=== PATIENT | female | born 1965 | race Caucasian/White ===

== ENCOUNTER → 2017-08-16 11:47 | Outpatient (CLI) | payer MEDICARE ==
[2017-08-20 21:08] LABS: BK QN PCR LOG10 3.079 (())
== END | disposition home or self-care (01) ==
LOC: D.LAB 11:47
PROVIDERS: Transplant Surgery
DX: Z94.0 Kidney transplant status (principal)

== ENCOUNTER → 2017-11-14 09:33 | Outpatient (CLI) | payer MEDICARE, MEDICAID ==
[2017-11-14 10:26] LABS: BASOPHILS 0.7 % (0-2); EOSINOPHILS 9.2 % (0-7); HEMATOCRIT 49.1 % (36.0-48.0); HEMOGLOBIN 16.8 g/dL (12-16); IMMATURE GRANULOCYTES 0.2 % (0-5); LYMPHOCYTES 26.5 % (15-50); MCH 32.2 pg (26.0-34.0); MCHC 34.2 g/dL (31.0-37.0); MCV 94.1 fL (80.0-100.0); MEAN PLATELET VOLUME 10.5 fL (7.4-10.4); MONOCYTES 9.3 % (2-11); NEUTROPHILS 54.1 % (40-80); PLATELET COUNT 225 10x3/uL (130-400); RBC 5.22 10x6/uL (4.00-5.40); RDW 13.1 % (11.5-14.5); WBC 8.6 10x3/uL (4.8-10.8)
[2017-11-14 10:30] LABS: ALBUMIN 3.9 g/dL (3.4-5.0); ANION GAP 12.5 mmol/L (8-16); BILIRUBIN - TOTAL 0.52 mg/dL (0.2-1.3); CALCIUM 10.7 mg/dL (8.5-10.1); CARBON DIOXIDE 31.7 mmol/L (21.0-32.0); CREATININE - SERUM 1.3 mg/dL (0.6-1.3); POTASSIUM - SERUM 4.2 mmol/L (3.5-5.1); PROTEIN - SERUM 6.9 g/dL (6.4-8.2)
[2017-11-14 11:05] LABS: APPEARANCE CLEAR (CLEAR); COLOR YELLOW (YELLOW); SPECIFIC GRAVITY 1.015 (1.005-1.020)
[2017-11-14 11:06] LABS: BILIRUBIN NEGATIVE (NEGATIVE); GLUCOSE NEGATIVE (NEGATIVE); KETONE NEGATIVE (NEGATIVE); NITRITE NEGATIVE (NEGATIVE); PROTEIN NEGATIVE (NEGATIVE); UROBILINOGEN NORMAL (NORMAL)
[2017-11-16 14:17] LABS: BK QN PCR LOG10 (URINE) 4.929 (()); BK QUANTITATION PCR Positive < 200 (Negative); BK QUANTITATION PCR (URINE) 85000 (Negative)
== END | disposition home or self-care (01) ==
LOC: D.LAB 09:33
PROVIDERS: Internal Medicine Nephrology
DX: Z94.0 Kidney transplant status (principal); Z51.81 Encounter for therapeutic drug level monitoring; Z79.52 Long term (current) use of systemic steroids

== ENCOUNTER → 2018-03-26 10:26 | Outpatient (CLI) | payer MEDICARE, MEDICAID ==
[2018-03-26 10:56] LABS: APPEARANCE CLEAR (CLEAR); BASOPHILS 0.5 % (0-2); BILIRUBIN NEGATIVE (NEGATIVE); COLOR YELLOW (YELLOW); EOSINOPHILS 9.7 % (0-7); GLUCOSE NEGATIVE (NEGATIVE); HEMOGLOBIN 16.3 g/dL (12-16); IMMATURE GRANULOCYTES 0.2 % (0-5); KETONE NEGATIVE (NEGATIVE); LYMPHOCYTES 29.4 % (15-50); MCH 32.7 pg (26.0-34.0); MCV 96.2 fL (80.0-100.0); MEAN PLATELET VOLUME 10.3 fL (7.4-10.4); MONOCYTES 7.2 % (2-11); NITRITE NEGATIVE (NEGATIVE); PLATELET COUNT 192 10x3/uL (130-400); PROTEIN NEGATIVE (NEGATIVE); RBC 4.99 10x6/uL (4.00-5.40); RDW 12.6 % (11.5-14.5); UROBILINOGEN NORMAL (NORMAL); WBC 9.3 10x3/uL (4.8-10.8)
[2018-03-26 11:17] LABS: ALBUMIN 3.7 g/dL (3.4-5.0); ANION GAP 11.5 mmol/L (8-16); BILIRUBIN - TOTAL 0.6 mg/dL (0.2-1.3); CALCIUM 9.6 mg/dL (8.5-10.1); CARBON DIOXIDE 25.6 mmol/L (21.0-32.0); CREATININE - SERUM 1.4 mg/dL (0.6-1.3); POTASSIUM - SERUM 4.1 mmol/L (3.5-5.1); PROTEIN - SERUM 7.2 g/dL (6.4-8.2)
[2018-03-28 14:24] LABS: BK QN PCR LOG10 (URINE) 4.279 (()); BK QUANTITATION PCR Positive < 200 (Negative); BK QUANTITATION PCR (URINE) 19000 (Negative)
== END | disposition home or self-care (01) ==
LOC: D.LAB 10:26
PROVIDERS: Internal Medicine Nephrology
DX: Z51.81 Encounter for therapeutic drug level monitoring (principal); Z79.52 Long term (current) use of systemic steroids; Z48.298 Encounter for aftercare following other organ transplant

== ENCOUNTER → 2018-06-26 09:03 | Outpatient (CLI) | payer MEDICARE, MEDICAID ==
[~2018-06-26 09:03] MED LIST: CALCIUM 500 +1 EAC3 PO; ESTRACE 0.5 MG0.5 MG PO; KEFLEX500 MG PO; LEVOTHYROXINE50 MCG PO; NORCO 7.5/325 T1 TA1 PO; OMEGA-3100 MG PO; PREDNISONE5 MG PO; TACROLIMUS ANHYD1 MG PO
[2018-06-26 09:48] LABS: APPEARANCE CLEAR (CLEAR); BILIRUBIN NEGATIVE (NEGATIVE); COLOR YELLOW (YELLOW); GLUCOSE NEGATIVE (NEGATIVE); KETONE NEGATIVE (NEGATIVE); NITRITE NEGATIVE (NEGATIVE); PROTEIN NEGATIVE (NEGATIVE); UROBILINOGEN NORMAL (NORMAL)
[2018-06-26 09:53] LABS: BASOPHILS 0.4 % (0-2); EOSINOPHILS 7.7 % (0-7); HEMATOCRIT 48.5 % (36.0-48.0); HEMOGLOBIN 16.3 g/dL (12-16); IMMATURE GRANULOCYTES 0.2 % (0-5); MCH 32.9 pg (26.0-34.0); MCHC 33.6 g/dL (31.0-37.0); MEAN PLATELET VOLUME 11.3 fL (7.4-10.4); MONOCYTES 7.8 % (2-11); NEUTROPHILS 56.9 % (40-80); PLATELET COUNT 210 10x3/uL (130-400); RBC 4.95 10x6/uL (4.00-5.40); RDW 13.1 % (11.5-14.5); WBC 10.3 10x3/uL (4.8-10.8)
[2018-06-26 10:11] LABS: ALBUMIN 3.6 g/dL (3.4-5.0); ANION GAP 11.3 mmol/L (8-16); BILIRUBIN - TOTAL 0.49 mg/dL (0.2-1.3); CARBON DIOXIDE 29.9 mmol/L (21.0-32.0); CREATININE - SERUM 1.1 mg/dL (0.6-1.3); POTASSIUM - SERUM 4.2 mmol/L (3.5-5.1); PROTEIN - SERUM 7.1 g/dL (6.4-8.2)
[2018-07-23 06:22] VITALS: BMI 23.6
== END | disposition home or self-care (01) ==
LOC: D.LAB 09:03
PROVIDERS: Internal Medicine Nephrology
DX: Z94.0 Kidney transplant status (principal); Z51.81 Encounter for therapeutic drug level monitoring; Z79.52 Long term (current) use of systemic steroids

== ENCOUNTER → 2018-07-03 11:21 | Outpatient (CLI) | payer MEDICARE, MEDICAID ==
[2018-07-05 13:18] LABS: BK QUANTITATION PCR Positive < 200 (Negative)
[2018-07-05 19:11] LABS: TACROLIMUS - LABCORP 3.3 ng/mL (2.0-20.0)
[2018-07-23 06:22] VITALS: BMI 23.6
== END | disposition home or self-care (01) ==
LOC: D.LAB 11:21
PROVIDERS: Internal Medicine Nephrology
DX: Z94.0 Kidney transplant status (principal)

== ENCOUNTER 2018-07-23 05:29 | Day surgery (SDC) | payer MEDICARE ==
[~2018-07-23] VITALS: Ht 157.5 cm; Wt 58.5 kg
--- NOTE | ~2018-07-23 | OP ---
PATIENT NAME: SHAHEEN MCKINLEY MEDICAL RECORD: [id number] :67 LOCATION:[facility] ADMISSION DATE: SURGEON: SLAVA ALONZO DO DATE OF OPERATION: 07/23/2018 PROCEDURE PERFORMED: Right fifth metatarsal open reduction internal fixation. PREOPERATIVE DIAGNOSIS: Right fifth metatarsal fracture. POSTOPERATIVE DIAGNOSIS: Right fifth metatarsal fracture. INDICATIONS: Ms. Mckinley is a 53-year-old female who had a right fifth metatarsal fracture approximately a month ago. I have been watching with x-ray and had not been healing. She was tired dealing with the pain and wanted something done to fix it, so we said we would do an intramedullary screw and informed of the risks and benefits of the procedure including infection, bleeding, damage to nerves and vessels and tendons in the foot. She is aware of these risks, and wanted to proceed forward as well as need for further surgery and risk of nonunion due to the location of the fracture, it is in the watershed area in the fifth metatarsal. She is aware of that and wanted to proceed. SURGEON: Slava Alonzo DO DESCRIPTION OF PROCEDURE: The patient was given a block preoperatively, given a gram of Ancef preoperatively, taken to the operative suite, laid in supine position. A timeout was performed. Everyone was in agreement with the correct side, site, patient and procedure. The right lower extremity was prepped and draped in sterile fashion. The incision was made just proximal to the base of the fifth metatarsal and then a guidewire was placed into the fifth metatarsal intramedullary canal. This was confirmed on AP and lateral x-ray, measured using a 50-mm screw. The overdrill was then used using a soft tissue guide and for protection the overdrill was used. A 50-mm screw was inserted into the foot, had nice compression at the fracture site and this was hand-tightened. This was withdrawn, guidewire was withdrawn and x-rays were confirmed in the intramedullary canal of the fifth metatarsal and then both site was irrigated and closed with 3-0 Vicryl under the skin and 4-0 Monocryl in horizontal mattress fashion on the skin. Adaptic, 4 x 4's, Kerlix, and ROLANDA were then placed on the foot and placed in a postop shoe. The patient was awakened and taken to recovery in stable condition. Blood loss was minimal. COMPLICATIONS: None. TRANSINT:[id number] Voice Confirmation ID: [id number] DOCUMENT ID: [id number] SLAVA ALONZO DO at 1042 CC: [id number] DICTATION DATE: 07/23/18830 BOTTLING SUPERVISOR: 07/23/18903 [facility] [place] 07/23/[address] [address]
[~2018-07-23 05:29] MED LIST changes: -KEFLEX500 MG PO; -NORCO 7.5/325 T1 TA1 PO
[2018-07-23 05:45] LABS: HEMATOCRIT 48.2 % (36.0-48.0); HEMOGLOBIN 16.6 g/dL (12-16); MCHC 34.4 g/dL (31.0-37.0); MCV 95.8 fL (80.0-100.0); RBC 5.03 10x6/uL (4.00-5.40); RDW 12.4 % (11.5-14.5); WBC 9.3 10x3/uL (4.8-10.8)
[2018-07-23 05:56] LABS: ANION GAP 14.2 mmol/L (8-16); CALCIUM 9.5 mg/dL (8.5-10.1); CARBON DIOXIDE 28.6 mmol/L (21.0-32.0); CREATININE - SERUM 1.3 mg/dL (0.6-1.3); POTASSIUM - SERUM 3.8 mmol/L (3.5-5.1)
[2018-07-23 06:22] VITALS: BP 118/79; Ht 157.5 cm; Wt 58.5 kg
[2018-07-23] MEDS ORDERED: NORCO 7.5/325 T1 TA1 PO (08:22)
[2018-07-23] MEDS ORDERED: KEFLEX500 MG PO (08:23)
== END 2018-07-23 10:00 | disposition home or self-care (01) ==
LOC: D.OPS 05:29 → D.PAN 07:30 → D.OPS 07:30
PROVIDERS: Anesthesiology
DX: S92.351A Displaced fracture of fifth metatarsal bone, right foot, initial encounter for closed fracture (principal); Z01.812 Encounter for preprocedural laboratory examination; X58.XXXA Exposure to other specified factors, initial encounter

== ENCOUNTER → 2018-11-25 10:05 | Outpatient (CLI) | payer MEDICARE ==
[2018-07-23 06:22] VITALS: BMI 23.6
[~2018-11-25 10:05] MED LIST changes: +KEFLEX500 MG PO; +NORCO 7.5/325 T1 TA1 PO
[2018-11-25 10:38] LABS: BASOPHILS 1.5 % (0-2); EOSINOPHILS 12.1 % (0-7); HEMATOCRIT 47.3 % (36.0-48.0); MCH 32.8 pg (26.0-34.0); MCHC 33.8 g/dL (31.0-37.0); MCV 96.9 fL (80.0-100.0); MEAN PLATELET VOLUME 10.5 fL (7.4-10.4); MONOCYTES 7.1 % (2-11); NEUTROPHILS 44.3 % (40-80); PLATELET COUNT 209 10x3/uL (130-400); RBC 4.88 10x6/uL (4.00-5.40); RDW 12.4 % (11.5-14.5); WBC 7.8 10x3/uL (4.8-10.8)
[2018-11-25 10:54] LABS: ALBUMIN 3.9 g/dL (3.4-5.0); ANION GAP 12.1 mmol/L (8-16); BILIRUBIN - TOTAL 0.56 mg/dL (0.2-1.3); CALCIUM 9.8 mg/dL (8.5-10.1); CARBON DIOXIDE 28.4 mmol/L (21.0-32.0); CREATININE - SERUM 1.3 mg/dL (0.6-1.3); MAGNESIUM - SERUM 1.9 mg/dL (1.8-2.4); PHOSPHOROUS 3.9 mg/dL (2.5-4.9); POTASSIUM - SERUM 4.5 mmol/L (3.5-5.1); PROTEIN - SERUM 7.4 g/dL (6.4-8.2)
[2018-11-25 11:30] LABS: APPEARANCE CLEAR (CLEAR); BACTERIA FEW /hpf (NONE SEEN); BILIRUBIN NEGATIVE (NEGATIVE); COLOR YELLOW (YELLOW); EPITHELIAL CELLS RARE /hpf (0-5); GLUCOSE NEGATIVE (NEGATIVE); KETONE NEGATIVE (NEGATIVE); NITRITE NEGATIVE (NEGATIVE); PROTEIN NEGATIVE (NEGATIVE); RED CELLS - URINE RARE /hpf (0-5); SPECIFIC GRAVITY 1.005 (1.005-1.020); UROBILINOGEN NORMAL (NORMAL); WHITE CELLS - URINE RARE /hpf (0-5)
[2018-11-27 11:20] LABS: BK QUANTITATION PCR Positive < 200 (Negative)
[2018-11-28 08:25] LABS: TACROLIMUS - LABCORP 1.8 ng/mL (2.0-20.0)
== END | disposition home or self-care (01) ==
LOC: D.LAB 10:05
PROVIDERS: Internal Medicine Nephrology
DX: Z94.0 Kidney transplant status (principal)

== ENCOUNTER 2019-01-20 11:04 | Inpatient (IN) | payer MEDICARE ==
[~2019-01-20] VITALS: Ht 157.5 cm; Wt 59.1 kg
[2019-01-20 11:41] LABS: BASOPHILS 0.3 % (0-2); EOSINOPHILS 3.8 % (0-7); HEMATOCRIT 45.6 % (36.0-48.0); HEMOGLOBIN 15.1 g/dL (12-16); IMMATURE GRANULOCYTES 0.2 % (0-5); LYMPHOCYTES 14.7 % (15-50); MCH 31.8 pg (26.0-34.0); MCHC 33.1 g/dL (31.0-37.0); MEAN PLATELET VOLUME 10.5 fL (7.4-10.4); MONOCYTES 5.9 % (2-11); NEUTROPHILS 75.1 % (40-80); PLATELET COUNT 223 10x3/uL (130-400); RBC 4.75 10x6/uL (4.00-5.40); RDW 12.5 % (11.5-14.5); WBC 12.1 10x3/uL (4.8-10.8)
[2019-01-20 12:02] LABS: ALBUMIN 3.5 g/dL (3.4-5.0); BILIRUBIN - TOTAL 0.46 mg/dL (0.2-1.3); CALCIUM 9.5 mg/dL (8.5-10.1); CARBON DIOXIDE 26.4 mmol/L (21.0-32.0); CREATININE - SERUM 1.4 mg/dL (0.6-1.3); POTASSIUM - SERUM 4.4 mmol/L (3.5-5.1); PROTEIN - SERUM 6.8 g/dL (6.4-8.2)
[2019-01-20 12:04] LABS: AMYLASE - SERUM 103 U/L (25-115); LIPASE 325 U/L (73-393)
[2019-01-20 12:29] LABS: APPEARANCE CLOUDY (CLEAR); BACTERIA MODERATE /hpf (NONE SEEN); BILIRUBIN NEGATIVE (NEGATIVE); COLOR YELLOW (YELLOW); EPITHELIAL CELLS RARE /hpf (0-5); GLUCOSE NEGATIVE (NEGATIVE); KETONE NEGATIVE (NEGATIVE); MUCUS <1+ /lpf (NONE SEEN); NITRITE NEGATIVE (NEGATIVE); PROTEIN 2+ mg/dL (NEGATIVE); UROBILINOGEN NORMAL (NORMAL); WHITE CELLS - URINE 25-50 /hpf (0-5)
[2019-01-20 12:48] VITALS: BP 157/87
--- NOTE | 2019-01-20 15:28 | MORECARE ---
CASE MANAGEMENT DISCHARGE SUMMARY PATIENT: SHAHEEN NEVAREZ UNIT: [id number] ADM DATE: 01/20/19 AGE: 53 : 67 SEX: F ROOM/BED: D.E17 AUTHOR: TIM OGLESBY PHYSICIAN: REFERRING PHYSICIAN: MARIEL ALFARO MD DATE OF SERVICE: 01/20/19 Discharge Plan Patient Name: SHAHEEN NEVAREZ [facility] [facility] 1965 Planned Disposition: Anticipated Discharge Date: Discharge Date: Expected LOS: Initial Reviewer: [email or web address] Initial Review Date: 01/20/2019 Generated: 01/20/19 4:28 pm Patient Name: SHAHEEN NEVAREZ Page 20740 at 1528 All edits/amendments must be made on the electronic document DICTATION DATE: 01/20/19 1528 RESOURCE RECOVERY SPECIALIST: JERILYN 01/20/19 1528 RPT#: [id number] DC DATE: STATUS: ADM IN [facility] [address] [place] [address] END OF REPORT
[2019-01-20 16:31] VITALS: BP 131/82
--- NOTE | 2019-01-20 17:58 | NUR ---
NS INFUSION INITIATED AT 1302 COMPLETE AT 1402. ZOSYN INFUSION COMPLETE AT 1657.
[2019-01-20] MEDS ORDERED: OS-CAL500 MG PO (19:40)
[2019-01-20] MEDS ORDERED: MELATONIN 3 MG1 TAB PO (19:45)
--- NOTE | 2019-01-20 19:45 | NUR ---
ASSESSMENT COMPLETE, PT A&O. RESPERATIONS EVEN ON RA. VITALS STABLE. IV TO LEFT ARM SL, SITE CLEAN AND DRY. HISTORY AND MED REC OBTAINED. PT DENIES PAIN OR NEEDS, BED LOW, CL IN REACH.
[2019-01-20 20:05] VITALS: BP 116/73
[2019-01-21 03:47] VITALS: BP 107/66
[2019-01-21 05:50] LABS: BASOPHILS 0.6 % (0-2); EOSINOPHILS 9.7 % (0-7); HEMATOCRIT 42.3 % (36.0-48.0); HEMOGLOBIN 13.8 g/dL (12-16); IMMATURE GRANULOCYTES 0.1 % (0-5); LYMPHOCYTES 32.5 % (15-50); MCH 31.5 pg (26.0-34.0); MCHC 32.6 g/dL (31.0-37.0); MCV 96.6 fL (80.0-100.0); MEAN PLATELET VOLUME 10.6 fL (7.4-10.4); MONOCYTES 8.3 % (2-11); NEUTROPHILS 48.8 % (40-80); PLATELET COUNT 205 10x3/uL (130-400); RBC 4.38 10x6/uL (4.00-5.40); RDW 12.7 % (11.5-14.5)
[2019-01-21 06:13] LABS: WBC 7.1 10x3/uL (4.8-10.8)
[2019-01-21 06:21] LABS: ANION GAP 11.9 mmol/L (8-16); CALCIUM 8.4 mg/dL (8.5-10.1); CARBON DIOXIDE 26.2 mmol/L (21.0-32.0); CREATININE - SERUM 1.3 mg/dL (0.6-1.3); POTASSIUM - SERUM 4.1 mmol/L (3.5-5.1)
--- NOTE | 2019-01-21 07:45 | NUR ---
PT SITTING UP IN BED. LEFT FA NS AT 75. ROOM AIR. ALERT AND ORIENTED. PT STATES SHE HAS A HEADACHE AND WOULD LIKE SOME TYLENOL. I STATED TO PT I WILL BRING IT WITH HER AM MEDS. PT VERBALIZED UNDERSTANDING. PT HAS NO FURTHER NEEDS AT THIS TIME. BED LOW. CL IN REACH.
[2019-01-21 08:26] VITALS: BP 102/73
--- NOTE | 2019-01-21 09:03 | NUR ---
PT REFUSED HEPARIN. PT STATES SHE DOES NOT NEED THAT MEDICATION FOR BLOOD CLOTS BECAUSE SHE DOES NOT HAVE A HX OF BLOOD CLOTS AND SHE HAS BEEN AMBULATING AROUND ROOM.
--- NOTE | 2019-01-21 11:00 | NUR ---
I have reviewed this patient and I concur with the Shift Assessment completed by the Licensed Practical Nurse today this shift.
--- NOTE | 2019-01-21 11:13 | NUR ---
SCD'S PLACED ON PT.
[2019-01-21 11:44] VITALS: BP 108/77
[2019-01-21 14:17] VITALS: Ht 157.5 cm; Wt 59.1 kg
[2019-01-21 15:34] VITALS: BP 108/72
--- NOTE | 2019-01-21 19:21 | NUR ---
ASSESSMENT COMPLETE, PT A&O, RESPERATIONS EVEN ON RA. IV TO LEFT FOREARM SL, SITE CLEAN AND DRY. PT CURRENTLY DENIES PAIN OR NEEDS AND STATES THAT SHE IF FEELING BETTER THAN SHE DID YESTERDAY.
[2019-01-21 20:00] VITALS: BP 118/78
--- NOTE | 2019-01-22 02:17 | NUR ---
PT ASLEEP, PT IS AAO. UP AD PORTIA. AROUSES TO NURSE IN ROOM. PT HAS NO S/S OF DISTRESS. BEDLOW CALL LIGHT IN REACH. PT WILL CALL FOR ASSIST WHEN NEEDED. WILL CPOC
[2019-01-22 03:55] VITALS: BP 142/55
--- NOTE | 2019-01-22 04:57 | NUR ---
IV TO LEFT FOREARM FLUSHED WITH OUT DIFFICULTY, HOW EVER VEIN IS RED AND IRRITATED. PT STATED THAT IT BRYSON TOO BAD TO INFUSE IV VANC. IV CATH REMOVED, TIP IN TACT, INSERTION SITE COVERED WITH 2X2 AND TAPE. IV RESITED TO LEFT WRIST, 20 GUAGE, FIRST ATTEMPT, PT TOLERATED WELL. IV VANC RESTARTED.
--- NOTE | 2019-01-22 07:40 | NUR ---
ASSESSMENT DONE. DENIES NEEDS.
[2019-01-22 10:23] VITALS: BP 128/83
--- NOTE | 2019-01-22 11:04 | NUR ---
I have reviewed this patient and I concur with the Shift Assessment completed by the Licensed Practical Nurse today this shift.
[2019-01-22 14:36] VITALS: BP 126/81
[2019-01-22 16:59] VITALS: BP 129/86
--- NOTE | 2019-01-22 17:47 | NUR ---
WITHOUT CHANGES OR DIATRESS NOTED AT THIS TIME.
[2019-01-22 20:32] VITALS: BP 122/79
[2019-01-23 00:04] VITALS: BP 126/84
[2019-01-23 06:04] VITALS: BP 133/91
[2019-01-23 08:59] VITALS: BP 139/90
[2019-01-23] MEDS ORDERED: MACRODANTIN50 MG PO (09:40)
[2019-01-23] MEDS ORDERED: PROTONIX40 MG PO (09:41)
--- NOTE | 2019-01-23 10:35 | NUR ---
IV DCD WITH TIP INTACT. INSTRUCTIONS GIVEN TO PT. TO PRIVATE CAR PER WHEEL CHAIR
--- NOTE | 2019-01-24 07:21 | DS ---
PATIENT:SHAHEEN MCKINLEY :67 MEDICAL RECORD: [id number] DISCHARGE SUMMARY ADMISSION DATE: 01/20/19 DISCHARGE DATE: 01/23/19 Ms. Mckinley is a 53-year-old white female with history of end-stage renal disease status post renal transplant. She has been stable without hospitalization. She does have recurrent urinary tract infections and chronic recurrent abdominal pain, admitted by Dr. Smith for worsening abdominal pain and presumed urinary tract infection. HOSPITAL COURSE: The patient had a CT of her abdomen that was essentially negative. She was placed on antibiotic therapy pending results of her urine culture, which were negative. She went from IV to oral antibiotics and tolerated this well without difficulty. At the time of discharge, she was essentially back to baseline and I will have her follow up with urology as an outpatient. DISCHARGE DIAGNOSES: 1. Recurrent abdominal pain, etiology unclear. 2. Recurrent urinary tract infections. 3. Status post renal transplant. PLAN: The patient will be discharged today. She will resume her home medications. I placed her on Macrobid 50 mg h.s. She will follow up with Dr. De Santiago in urology. I will see her back in the office in 4-6 weeks. She will resume all of her transplant drugs. TRANSINT:[id number] Voice Confirmation ID: [id number] DOCUMENT ID: [id number] MARIEL ALFARO MD at 0721 CC: [id number] DICTATION DATE: 01/23/19817 PROFESSIONAL ENGINEER: 01/23/19 0839 DIS IN 01/23/19 [id number] [place] [address]
--- NOTE | 2019-01-24 08:04 | MORECARE ---
CASE MANAGEMENT DISCHARGE SUMMARY PATIENT: SHAHEEN NEVAREZ UNIT: [id number] ADM DATE: 01/20/19 AGE: 53 : 67 SEX: F ROOM/BED: D.2127 AUTHOR: TIM OGLESBY PHYSICIAN: REFERRING PHYSICIAN: MARIEL ALFARO MD DATE OF SERVICE: 01/24/19 Discharge Plan Patient Name: SHAHEEN NEVAREZ [facility] [facility] 1965 Planned Disposition: Home Anticipated Discharge Date: 01/23/19 Discharge Date: 01/23/2019 Expected LOS: 3 Initial Reviewer: [email or web address] Initial Review Date: 01/20/2019 Generated: 01/24/19 9:04 am Coverage Notice Reviewer: [email or web address] Raciel Madrigal Notice Issued Date-Time: 01/23/2019 11:00 Notice Type: IM Discharge Notice Notice Delivered To: Patient Relationship to Patient: Machines Technician Name: Delivery Method: HAND - Hand Delivered Alessandra Days: Prior Verbal Notification: Recipient Understood Notice: Yes Recipient Signature: Yes Med Rec Note Co-signed by Attending: Coverage Notice Comment: Last DP export: 01/20/19 2:28 p Patient Name: SHAHEEN NEVAREZ Page 03830 at 0804 All edits/amendments must be made on the electronic document DICTATION DATE: 01/24/19802 CONTAINER REPAIRER: DM 01/24/19802 RPT#: [id number] DC DATE:01/23/19 STATUS: DIS IN [facility] [address] [place] [address] END OF REPORT
--- NOTE | 2019-01-24 08:11 | MORECARE ---
CASE MANAGEMENT DISCHARGE SUMMARY PATIENT: SHAHEEN NEVAREZ UNIT: [id number] ADM DATE: 01/20/19 AGE: 53 : 67 SEX: F ROOM/BED: D.6976 AUTHOR: TIM OGLESBY PHYSICIAN: REFERRING PHYSICIAN: MARIEL ALFARO MD DATE OF SERVICE: 01/24/19 Discharge Plan Patient Name: SHAHEEN NEVAREZ Facility: [facility]:[place] : 1965 Planned Disposition: Home Anticipated Discharge Date: 01/23/19 Discharge Date: 01/23/2019 Expected LOS: 3 Initial Reviewer: [email or web address] Initial Review Date: 01/20/2019 Generated: 01/24/19 9:11 am Comments DCP- Discharge Planning Updated by [email or web address]: Colt Madrigal on 01/24/19 7:[address] Patient Name: SHAHEEN NEVAREZ Encounter No: [id number] : 1965 Primary Insurance: MEDICARE A & B Anticipated DC Date: 01-23-2019 Planned Disposition: Home LATE ENTRY FROM 01-23-19: DCP follow-up note: CM MET WITH PT IN ROOM TO DISCUSS DISCHARGE NEEDS AND PLANNING. CM DISCUSSED AVAILABILITY OF HOME HEALTH, REHAB SERVICES AND MEDICAL EQUIPMENT. PT DENIES DISCHARGE NEEDS. SON PRESENT TO TRANSPORT HOME AT DISCHARGE. IMPORTANT MESSAGE FROM MEDICARE PROVIDED AND EXPLAINED. Colt Madrigal, CASE MANAGEMENT Coverage Notice Reviewer: [email or web address] Raciel Madrigal Notice Issued Date-Time: 01/23/2019 11:00 Notice Type: IM Discharge Notice Notice Delivered To: Patient Relationship to Patient: Rn Discharge Name: Delivery Method: HAND - Hand Delivered Alessandra Days: Prior Verbal Notification: Recipient Understood Notice: Yes Recipient Signature: Yes Med Rec Note Co-signed by Attending: Coverage Notice Comment: Last DP export: 01/24/19 7:04 a Patient Name: SHAHEEN NEVAREZ Page [phone] at 0811 All edits/amendments must be made on the electronic document DICTATION DATE: 01/24/19810 ANIMAL CONTROL LICENSING WORKER: JERILYN 01/24/19810 RPT#: [id number] DC DATE:01/23/19 STATUS: DIS IN [facility] [address] [place] [address] END OF REPORT
== END 2019-01-23 11:53 | disposition home or self-care (01) | DRG 690 ==
LOC: D.ER 11:04 → D.EDHOLD 14:44 → D.M2 18:00
PROVIDERS: Family Medicine; ADMIT Internal Medicine Nephrology; ATTEND Internal Medicine Nephrology
DX: N39.0 Urinary tract infection, site not specified (principal); Z94.0 Kidney transplant status

== ENCOUNTER → 2019-02-10 09:25 | Outpatient (CLI) | payer MEDICARE ==
[2019-01-21 14:17] VITALS: BMI 23.4
[~2019-02-10 09:25] MED LIST changes: +MACRODANTIN50 MG PO; +MELATONIN 3 MG1 TAB PO; +OS-CAL500 MG PO; +PROTONIX40 MG PO
[2019-02-10 10:02] LABS: HEMATOCRIT 46.4 % (36.0-48.0); HEMOGLOBIN 15.5 g/dL (12-16); LYMPHOCYTES 20.1 % (15-50); MCH 31.8 pg (26.0-34.0); MCHC 33.4 g/dL (31.0-37.0); MCV 95.3 fL (80.0-100.0); MEAN PLATELET VOLUME 10.4 fL (7.4-10.4); NEUTROPHILS 69.6 % (40-80); PLATELET COUNT 173 10x3/uL (130-400); RBC 4.87 10x6/uL (4.00-5.40); RDW 12.6 % (11.5-14.5); WBC 8.7 10x3/uL (4.8-10.8)
[2019-02-10 10:08] LABS: ALBUMIN 3.6 g/dL (3.4-5.0); ANION GAP 10.7 mmol/L (8-16); BILIRUBIN - TOTAL 0.71 mg/dL (0.2-1.3); CALCIUM 9.9 mg/dL (8.5-10.1); CARBON DIOXIDE 30.8 mmol/L (21.0-32.0); CREATININE - SERUM 1.3 mg/dL (0.6-1.3); MAGNESIUM - SERUM 1.8 mg/dL (1.8-2.4); PHOSPHOROUS 3.9 mg/dL (2.5-4.9); POTASSIUM - SERUM 4.5 mmol/L (3.5-5.1); PROTEIN - SERUM 7.3 g/dL (6.4-8.2)
[2019-02-10 10:30] LABS: APPEARANCE SL CLDY (CLEAR); BACTERIA MODERATE /hpf (NONE SEEN); BILIRUBIN NEGATIVE (NEGATIVE); COLOR YELLOW (YELLOW); EPITHELIAL CELLS 0-5 /hpf (0-5); GLUCOSE NEGATIVE (NEGATIVE); KETONE NEGATIVE (NEGATIVE); NITRITE NEGATIVE (NEGATIVE); PROTEIN NEGATIVE (NEGATIVE); RED CELLS - URINE 0-5 /hpf (0-5); UROBILINOGEN NORMAL (NORMAL)
[2019-02-10 10:31] LABS: MUCUS <1+ /lpf (NONE SEEN)
[2019-02-12 08:17] LABS: TACROLIMUS - LABCORP 3.2 ng/mL (2.0-20.0)
[2019-02-12 12:13] LABS: BK QUANTITATION PCR Positive < 200 (Negative)
== END | disposition home or self-care (01) ==
LOC: D.LAB 09:25
PROVIDERS: ATTEND Internal Medicine Nephrology
DX: Z94.0 Kidney transplant status (principal)

== ENCOUNTER 2019-02-10 20:38 | Emergency (ER) | payer MEDICARE ==
[~2019-02-10] VITALS: Ht 157.5 cm; Wt 59.0 kg
[2019-02-10 20:45] VITALS: Ht 157.5 cm; Wt 59.0 kg
[2019-02-10 21:24] LABS: APPEARANCE CLEAR (CLEAR); COLOR YELLOW (YELLOW)
[2019-02-10 21:25] LABS: BILIRUBIN NEGATIVE (NEGATIVE); GLUCOSE NEGATIVE (NEGATIVE); KETONE NEGATIVE (NEGATIVE); NITRITE NEGATIVE (NEGATIVE); PROTEIN NEGATIVE (NEGATIVE); RED CELLS - URINE OCC /hpf (0-5); UROBILINOGEN NORMAL (NORMAL); WHITE CELLS - URINE 0-5 /hpf (0-5)
[2019-02-10 21:26] LABS: BACTERIA FEW /hpf (NONE SEEN); EPITHELIAL CELLS OCC /hpf (0-5)
[2019-02-10 21:51] LABS: BASOPHILS 0.5 % (0-2); EOSINOPHILS 5.2 % (0-7); HEMATOCRIT 42.3 % (36.0-48.0); IMMATURE GRANULOCYTES 0.2 % (0-5); LYMPHOCYTES 24.3 % (15-50); MCH 31.7 pg (26.0-34.0); MCHC 33.1 g/dL (31.0-37.0); MCV 95.9 fL (80.0-100.0); MEAN PLATELET VOLUME 11.1 fL (7.4-10.4); MONOCYTES 8.7 % (2-11); NEUTROPHILS 61.1 % (40-80); PLATELET COUNT 193 10x3/uL (130-400); RBC 4.41 10x6/uL (4.00-5.40); RDW 12.6 % (11.5-14.5); WBC 11.7 10x3/uL (4.8-10.8)
[2019-02-10 21:59] LABS: ALBUMIN 3.4 g/dL (3.4-5.0); ALKALINE PHOSPHATASE 49 U/L (46-116); ALT (SGPT) 23 U/L (10-68); AMYLASE - SERUM 94 U/L (25-115); BILIRUBIN - TOTAL 0.45 mg/dL (0.2-1.3); CALCIUM 9.8 mg/dL (8.5-10.1); CARBON DIOXIDE 28.6 mmol/L (21.0-32.0); CHLORIDE - SERUM 102 mmol/L (98-107); CREATININE - SERUM 1.3 mg/dL (0.6-1.3); GLUCOSE 102 mg/dL (74-106); LIPASE 234 U/L (73-393); POTASSIUM - SERUM 4.2 mmol/L (3.5-5.1); SODIUM 140 mmol/L (136-145); eGFR NON AFRICAN AMERICAN 46 mL/min (90-120)
[2019-02-10 22:01] LABS: CALC OSMOLALITY 282 mosm/kg (275-300); TROPONIN-I < 0.017 ng/mL (0.000-0.060); UREA NITROGEN 24 mg/dL (7-18)
[2019-02-11 02:02] VITALS: BP 143/82
== END 2019-02-11 02:03 | disposition home or self-care (01) ==
LOC: D.ER 20:38
PROVIDERS: Family Medicine
DX: R10.9 Unspecified abdominal pain (principal); M54.5 Low back pain

== ENCOUNTER → 2019-02-19 18:03 | Outpatient (CLI) | payer MEDICARE ==
[~2019-02-19 18:03] MED LIST changes: +CIPRO500 MG PO; +FLAGYL500 MG PO; +LEVOFLOXACIN500 MG PO; +OMNICEF300 MG PO; +PROBIOTIC BLEN1 EACH PO; +VANCOCIN HCL250 MG PO
== END | disposition home or self-care (01) ==
LOC: D.LABREF 18:03
DX: Z00.00 Encounter for general adult medical examination without abnormal findings (principal)

== ENCOUNTER 2019-04-02 19:44 | Inpatient (IN) | payer MEDICARE ==
[~2019-04-02] VITALS: Ht 157.5 cm; Wt 58.1 kg
[~2019-04-02 19:44] MED LIST changes: -CIPRO500 MG PO; -FLAGYL500 MG PO; -LEVOFLOXACIN500 MG PO; -OMNICEF300 MG PO; -PROBIOTIC BLEN1 EACH PO; -VANCOCIN HCL250 MG PO
[2019-04-02 20:37] VITALS: BP 124/90
[2019-04-02 21:34] LABS: BASOPHILS 0.1 % (0-2); EOSINOPHILS 0.3 % (0-7); HEMATOCRIT 46.6 % (36.0-48.0); HEMOGLOBIN 15.7 g/dL (12-16); IMMATURE GRANULOCYTES 0.3 % (0-5); LYMPHOCYTES 5.3 % (15-50); MCH 31.8 pg (26.0-34.0); MCHC 33.7 g/dL (31.0-37.0); MCV 94.5 fL (80.0-100.0); MEAN PLATELET VOLUME 10.6 fL (7.4-10.4); MONOCYTES 6.3 % (2-11); NEUTROPHILS 87.7 % (40-80); PLATELET COUNT 199 10x3/uL (130-400); RBC 4.93 10x6/uL (4.00-5.40); RDW 13.3 % (11.5-14.5); WBC 18.7 10x3/uL (4.8-10.8)
[2019-04-02 21:35] LABS: ALBUMIN 3.8 g/dL (3.4-5.0); ANION GAP 16.4 mmol/L (8-16); BILIRUBIN - TOTAL 0.87 mg/dL (0.2-1.3); CALCIUM 9.9 mg/dL (8.5-10.1); CARBON DIOXIDE 25.9 mmol/L (21.0-32.0); CREATININE - SERUM 1.4 mg/dL (0.6-1.3); POTASSIUM - SERUM 4.3 mmol/L (3.5-5.1); PROTEIN - SERUM 7.7 g/dL (6.4-8.2)
[2019-04-02 21:37] LABS: APPEARANCE CLEAR (CLEAR); BILIRUBIN NEGATIVE (NEGATIVE); COLOR YELLOW (YELLOW); GLUCOSE NEGATIVE (NEGATIVE); KETONE NEGATIVE (NEGATIVE); NITRITE NEGATIVE (NEGATIVE); PROTEIN NEGATIVE (NEGATIVE); UROBILINOGEN NORMAL (NORMAL)
[2019-04-02 21:38] LABS: BACTERIA MODERATE /hpf (NONE SEEN); EPITHELIAL CELLS 0-5 /hpf (0-5); RED CELLS - URINE OCC /hpf (0-5); WHITE CELLS - URINE 0-5 /hpf (0-5)
--- NOTE | 2019-04-02 22:25 | NUR ---
CT CALLED AND INFORMED THAT PATIENT WAS READY FOR SCAN.
--- NOTE | 2019-04-03 01:10 | NUR ---
RECEIVED PT FROM ER VIA W/C. ALERT AND ORIENTED X4. RESP EVEN AND NONLABORED. BBS CTA. REPORTS LT QUAD ABD PAIN 5. RECEIVED MORPHINE IN ER. NS @ 100 MLHR INFUSING IN RT AC WITHOUT DIFF. AMBULATORY. TELEMETRY SHOWS SR WITH RATE OF 76. NO N/V/D. STATES SHE HAS BEEN CONSTIPATED BUT HAD BM YESTERDAY. NO DISTRESS. ADULT CHILD AT BEDSIDE. SR ELEVATED X2. CL IN REACH.
[2019-04-03 01:35] VITALS: BP 115/68
[2019-04-03 02:06] VITALS: BP 115/68; BMI 23.4
[2019-04-03 05:25] VITALS: BP 92/56
[2019-04-03 09:00] VITALS: BP 95/58
[2019-04-03 12:36] VITALS: BP 101/65
[2019-04-03 13:13] VITALS: Ht 157.5 cm; Wt 58.1 kg
[2019-04-03 16:43] VITALS: BP 117/74
--- NOTE | 2019-04-03 17:02 | NUR ---
PT UP IN RESTROOM NO S/S OF DISTRESS. PT STATED SHE IS HAVING LESS BATHROOM VISITS AND STOMACH CRAMPING TODAY. FAMILY AT BEDSIDE CONTINUE WITH PLAN OF CARE
--- NOTE | 2019-04-03 17:48 | NUR ---
I have reviewed this patient and I concur with the Shift Assessment completed by the Licensed Practical Nurse today this shift.
[2019-04-04 00:07] VITALS: BP 114/68
[2019-04-04 05:07] VITALS: BP 127/75
--- NOTE | 2019-04-04 06:25 | NUR ---
PT RESTING AT THIS TIME. SHE REQUIRED X1 PRN MED FOR MILES AND X1 PRN FOR NAUSEA THIS SHIFT. REMAINS NPO EXCEPT SIPS W/ MEDS.
--- NOTE | 2019-04-04 07:13 | NUR ---
PATIENT A&O. LYING COMFORTABLY; CONVERSANT. ALL NEEDS MET AT THIS TIME.
[2019-04-04 07:21] LABS: BASOPHILS 0.3 % (0-2); EOSINOPHILS 0.1 % (0-7); HEMATOCRIT 40.4 % (36.0-48.0); HEMOGLOBIN 13.4 g/dL (12-16); IMMATURE GRANULOCYTES 0.3 % (0-5); LYMPHOCYTES 15.8 % (15-50); MCH 31.7 pg (26.0-34.0); MCHC 33.2 g/dL (31.0-37.0); MCV 95.5 fL (80.0-100.0); MEAN PLATELET VOLUME 10.9 fL (7.4-10.4); MONOCYTES 4.8 % (2-11); NEUTROPHILS 78.7 % (40-80); PLATELET COUNT 187 10x3/uL (130-400); RBC 4.23 10x6/uL (4.00-5.40); RDW 13.4 % (11.5-14.5)
[2019-04-04 07:24] LABS: WBC 10.8 10x3/uL (4.8-10.8)
[2019-04-04 07:32] LABS: BILIRUBIN - TOTAL 0.53 mg/dL (0.2-1.3); CALCIUM 9.8 mg/dL (8.5-10.1); CARBON DIOXIDE 23.7 mmol/L (21.0-32.0); CREATININE - SERUM 1.3 mg/dL (0.6-1.3); PROTEIN - SERUM 6.4 g/dL (6.4-8.2)
[2019-04-04 07:34] LABS: ANION GAP 15.7 mmol/L (8-16); POTASSIUM - SERUM 3.4 mmol/L (3.5-5.1)
--- NOTE | 2019-04-04 08:35 | NUR ---
PATIENT REFUSES SCD'S.
[2019-04-04 09:05] VITALS: BP 121/71
[2019-04-04 12:57] VITALS: BP 126/74
--- NOTE | 2019-04-04 16:39 | NUR ---
I have reviewed this patient and I concur with the Shift Assessment completed by the Licensed Practical Nurse today this shift.
[2019-04-04 17:40] VITALS: BP 124/72
--- NOTE | 2019-04-04 19:00 | NUR ---
REPORT RECEIVED AND CARE OF PT ASSUMED. PT AMBULATING IN ROOM AT THIS TIME. IV IN RIGHT AC PATENT WITH NS INFUSING AT 40 ML / HR. TELEMETRY IN PLACE AND READING 52 SB AT THIS ASSESSMENT. WILL MONITOR FOR NEEDS.
[2019-04-04 20:06] VITALS: BP 139/73
--- NOTE | 2019-04-04 20:20 | NUR ---
HS MEDICATIONS GIVEN. WILL CONTINUE TO MONITOR FOR NEEDS.
[2019-04-05 00:57] VITALS: BP 138/81
[2019-04-05 04:35] VITALS: BP 128/71
[2019-04-05 05:09] LABS: CALCIUM 9.5 mg/dL (8.5-10.1); CARBON DIOXIDE 23.6 mmol/L (21.0-32.0); CREATININE - SERUM 1.3 mg/dL (0.6-1.3); POTASSIUM - SERUM 3.6 mmol/L (3.5-5.1)
[2019-04-05 05:17] LABS: BASOPHILS 0.2 % (0-2); EOSINOPHILS 0.4 % (0-7); HEMATOCRIT 37.7 % (36.0-48.0); HEMOGLOBIN 12.7 g/dL (12-16); IMMATURE GRANULOCYTES 0.2 % (0-5); LYMPHOCYTES 25.8 % (15-50); MCH 31.9 pg (26.0-34.0); MCHC 33.7 g/dL (31.0-37.0); MCV 94.7 fL (80.0-100.0); MEAN PLATELET VOLUME 10.8 fL (7.4-10.4); MONOCYTES 6.8 % (2-11); NEUTROPHILS 66.6 % (40-80); PLATELET COUNT 180 10x3/uL (130-400); RBC 3.98 10x6/uL (4.00-5.40); RDW 13.3 % (11.5-14.5); WBC 8.9 10x3/uL (4.8-10.8)
[2019-04-05 10:19] VITALS: BP 140/89
--- NOTE | 2019-04-05 15:01 | NUR ---
SCD'S GIVEN TO PATIENT. REQUESTS TO WAIT AFTER SHOWER TO PUT ON
[2019-04-05 18:08] VITALS: BP 147/83
--- NOTE | 2019-04-05 19:00 | NUR ---
REPORT RECEIVED AND CARE OF PT ASSUMED. PT LYING IN LOW RIVERA'S POSITION VISITING WITH FAMILY MEMBER. IV IN RIGHT AC PATENT WITH NS INFUSING AT 40 ML / HR. AND ZOFRAN INFUSING AT 4.7 ML / HR. WILL MONITOR FOR NEEDS.
--- NOTE | 2019-04-05 20:11 | NUR ---
HS MEDICATIONS GIVEN. WILL CONTIUE TO MONITOR FOR NEEDS.
[2019-04-05 21:07] VITALS: BP 103/65
[2019-04-06 01:08] VITALS: BP 141/85
[2019-04-06 05:29] VITALS: BP 139/80
[2019-04-06 06:31] LABS: BASOPHILS 0.3 % (0-2); EOSINOPHILS 0.3 % (0-7); HEMATOCRIT 37.7 % (36.0-48.0); HEMOGLOBIN 12.8 g/dL (12-16); IMMATURE GRANULOCYTES 0.3 % (0-5); LYMPHOCYTES 30.1 % (15-50); MCH 31.4 pg (26.0-34.0); MEAN PLATELET VOLUME 10.7 fL (7.4-10.4); MONOCYTES 9.8 % (2-11); NEUTROPHILS 59.2 % (40-80); PLATELET COUNT 185 10x3/uL (130-400); RBC 4.07 10x6/uL (4.00-5.40); RDW 13.1 % (11.5-14.5)
[2019-04-06 06:34] LABS: MCV 92.6 fL (80.0-100.0)
--- NOTE | 2019-04-06 06:34 | NUR ---
IV HURTING. REMOVED WITH CATHETER TIP INTACT. RE-SITED BY MATHIEU CARRILLO LPN USING 22 GUAGE CATHETER IN ONE STICK. RE-STARTED IV FLUIDS.
[2019-04-06 06:49] LABS: ANION GAP 14.1 mmol/L (8-16); CALCIUM 9.1 mg/dL (8.5-10.1); CARBON DIOXIDE 25.2 mmol/L (21.0-32.0); CREATININE - SERUM 1.2 mg/dL (0.6-1.3); POTASSIUM - SERUM 3.3 mmol/L (3.5-5.1)
[2019-04-06 08:05] VITALS: BP 149/83
[2019-04-06 11:53] VITALS: BP 151/85
--- NOTE | 2019-04-06 12:19 | NUR ---
PATIENT WOULD LIKE URINE TESTED FOR A UTI. STATES SHE IS FEELING PRESSURE IN HER BLADDER
[2019-04-06 15:06] VITALS: BP 129/75
--- NOTE | 2019-04-06 19:00 | NUR ---
REPORT RECEIVED AND CARE OF PT ASSUMED. PT AMBULATING IN ROOM AT THIS TIME. IV IN RIGHT FA PATENT WITH PLASMYLITE INFUSING AT 30 ML/HR; ZOFRAN INFUSING AT 4.7 ML/HR; AND CLINIMIX INFUSING AT 30 ML / HR. TELEMETRY IN PLACE AND READING SR AT THIS ASSESSMENT. WILL MONITOR FOR NEEDS.
[2019-04-06 20:32] VITALS: BP 140/87
--- NOTE | 2019-04-06 20:49 | NUR ---
HS MEDICATIONS GIVEN TO INCLUDE BUPINEX PER PRN ORDER FOR PAIN. WILL MONITOR FOR EFFECTIVENESS.
[2019-04-07 01:25] VITALS: BP 153/91
[2019-04-07 04:57] LABS: BASOPHILS 0.1 % (0-2); EOSINOPHILS 0.1 % (0-7); HEMATOCRIT 40.6 % (36.0-48.0); HEMOGLOBIN 14.1 g/dL (12-16); IMMATURE GRANULOCYTES 0.6 % (0-5); LYMPHOCYTES 23.3 % (15-50); MCH 31.8 pg (26.0-34.0); MCHC 34.7 g/dL (31.0-37.0); MCV 91.6 fL (80.0-100.0); MEAN PLATELET VOLUME 11.1 fL (7.4-10.4); NEUTROPHILS 65.9 % (40-80); PLATELET COUNT 199 10x3/uL (130-400); RBC 4.43 10x6/uL (4.00-5.40); WBC 7.1 10x3/uL (4.8-10.8)
[2019-04-07 05:10] LABS: ANION GAP 13.6 mmol/L (8-16); CALCIUM 9.3 mg/dL (8.5-10.1); CREATININE - SERUM 1.2 mg/dL (0.6-1.3); MAGNESIUM - SERUM 1.2 mg/dL (1.8-2.4); POTASSIUM - SERUM 3.6 mmol/L (3.5-5.1)
[2019-04-07 06:02] VITALS: BP 153/93
[2019-04-07 09:00] VITALS: BP 156/92
[2019-04-07 14:03] VITALS: BP 130/90
[2019-04-07 16:53] VITALS: BP 121/81
--- NOTE | 2019-04-07 21:44 | NUR ---
REC'D IN BED WATCHING TV.DENIES ANY DISCOMFORT AT PRESENT TIME WILL CONTINUE TO MONITOR FOR ANY CHGES AND FOLLOW CURRENT PLAN OF CARE.
[2019-04-07 22:12] VITALS: BP 138/91
[2019-04-08 01:15] VITALS: BP 123/81
--- NOTE | 2019-04-08 04:11 | NUR ---
res I have reviewed this patient and I concur with the Shift Assessment completed by the Licensed Practical Nurse today this shift.
[2019-04-08 04:56] LABS: BASOPHILS 0.3 % (0-2); EOSINOPHILS 0.4 % (0-7); HEMATOCRIT 40.6 % (36.0-48.0); IMMATURE GRANULOCYTES 1.4 % (0-5); LYMPHOCYTES 28.2 % (15-50); MCH 31.4 pg (26.0-34.0); MCHC 34.5 g/dL (31.0-37.0); MEAN PLATELET VOLUME 10.7 fL (7.4-10.4); MONOCYTES 8.7 % (2-11); PLATELET COUNT 198 10x3/uL (130-400); RBC 4.46 10x6/uL (4.00-5.40); RDW 12.9 % (11.5-14.5); WBC 7.9 10x3/uL (4.8-10.8)
[2019-04-08 05:29] VITALS: BP 132/87
[2019-04-08 05:45] LABS: CALC OSMOLALITY 284 mosm/kg (275-300); CALCIUM 9.2 mg/dL (8.5-10.1); CARBON DIOXIDE 26.2 mmol/L (21.0-32.0); CHLORIDE - SERUM 104 mmol/L (98-107); CREATININE - SERUM 1.2 mg/dL (0.6-1.3); GLUCOSE 91 mg/dL (74-106); PHOSPHOROUS 3.4 mg/dL (2.5-4.9); POTASSIUM - SERUM 3.2 mmol/L (3.5-5.1); SODIUM 142 mmol/L (136-145); UREA NITROGEN 18 mg/dL (7-18); eGFR NON AFRICAN AMERICAN 50 mL/min (90-120)
[2019-04-08 05:50] LABS: MAGNESIUM - SERUM 1.9 mg/dL (1.8-2.4); TROPONIN-I < 0.017 ng/mL (0.000-0.060)
--- NOTE | 2019-04-08 08:07 | NUR ---
ALERT AND ORIENTED X 3. LUNGS CLEAR BILATERALLY IN ALL GERMAN. HEART SOUNDS S1 AND S2 HEARD IN ALL GERMAN. TELEMETRY IN PLACE. SINUS ZEV. BOWEL SOUNDS ACTIVE X 4. SKIN INTACT WITHOUT REDNESS. IV TO RFA PATENT WITHOUT REDNESS. STATES PAIN 3/10. DENIES NEEDS. STATES JUST WANTS TO REST. BED LOW. CALL GIL AND PERSONAL ITEMS IN REACH. WILL CONTINUE TO MONITOR.
[2019-04-08 08:44] LABS: APPEARANCE CLEAR (CLEAR); BACTERIA FEW /hpf (NONE SEEN); BILIRUBIN NEGATIVE (NEGATIVE); COLOR YELLOW (YELLOW); EPITHELIAL CELLS 0-5 /hpf (0-5); GLUCOSE NEGATIVE (NEGATIVE); KETONE NEGATIVE (NEGATIVE); MUCUS <1+ /lpf (NONE SEEN); NITRITE NEGATIVE (NEGATIVE); PROTEIN NEGATIVE (NEGATIVE); UROBILINOGEN NORMAL (NORMAL); WHITE CELLS - URINE OCC /hpf (0-5)
[2019-04-08 09:04] VITALS: BP 152/86
--- NOTE | 2019-04-08 10:06 | NUR ---
RESTING IN BED. DENIES PAIN. DENIES NEEDS. STATES THINKS DISCHARGING TODAY. WILL CONTINUE TO MONITOR.
--- NOTE | 2019-04-08 10:26 | NUR ---
EDUCATION PROVIDED ON NEED FOR STOOL SAMPLE. VERBALIZED UNDERSTANDING. HAT IN TOILET.
--- NOTE | 2019-04-08 11:04 | NUR ---
ONE TIME ORDER FOR YOGURT SENT TO [facility] PER PATIENT REQUEST.
--- NOTE | 2019-04-08 13:04 | NUR ---
TOLERATED LUNCH WITHOUT NAUSEA. ATE 50%
[2019-04-08 13:34] VITALS: BP 142/93
--- NOTE | 2019-04-08 14:10 | NUR ---
PATIENT STATES WAS TOLD BY GI THAT SHE COULD DC HOME IF NOT NAUSEAS AFTER LUNCH. NOTE IN THAT STATES PT CAN DC IF TOLERATES LUNCH. NO DISCHARGE ORDERS IN PLACE. PATIENT NOTIFIED OF THIS. DR BORA CUELLAR. WAITING FOR CALL BACK WITH DC ORDERS
--- NOTE | 2019-04-08 14:22 | NUR ---
DR SAHNI STATES ANGELINA WAS LAST TO SEE PATIENT. STATES WILL CONSULT WITH ANGELINA ABOUT ORDER FOR DISCHARGE. WILL NOTIFY PATIENT.
--- NOTE | 2019-04-08 14:30 | NUR ---
DR SAHNI STATED PATIENT WAS OK TO DC HOME. ASKED TO MAKE SURE LEVAQUIN, FLAGYL, AND PROBIOTICS SHOW UP ON DC ORDERS.
[2019-04-08] MEDS ORDERED: LEVOFLOXACIN500 MG PO (14:39)
[2019-04-08] MEDS ORDERED: FLAGYL500 MG PO (14:41)
[2019-04-08] MEDS ORDERED: PROBIOTIC BLEN1 EACH PO (14:42)
--- NOTE | 2019-04-08 14:43 | NUR ---
IV REMOVED FROM PATIENT RFA PER REQUEST.
--- NOTE | 2019-04-08 15:37 | NUR ---
DISCHARGE EDUCATION PROVIDED BOTH WRITTEN AND VERBAL. VERBALIZED UNDERSTANDING. DENIES FURTHER QUESTIONS. DENIES FURTHER NEEDS. IV PREVIOUSLY REMOVED FROM RFA WITH TIP INTACT. PATIENT DISCHARGED HOME WITH SON WITH ALL BELONGINGS.
--- NOTE | 2019-04-08 15:42 | MORECARE ---
CASE MANAGEMENT DISCHARGE SUMMARY PATIENT: SHAHEEN NEVAREZ UNIT: [id number] ADM DATE: 04/03/19 AGE: 53 : 67 SEX: F ROOM/BED: D.2224 AUTHOR: TIM OGLESBY PHYSICIAN: REFERRING PHYSICIAN: NEGRITA SAHNI MD DATE OF SERVICE: 04/08/19 Discharge Plan Patient Name: SHAHEEN NEVAREZ Facility: [facility]:[place] : 1965 Planned Disposition: Anticipated Discharge Date: Discharge Date: Expected LOS: Initial Reviewer: [email or web address] Initial Review Date: 04/03/2019 Generated: 04/08/19 4:42 pm Comments DCP- Discharge Planning Updated by [email or web address]: Rosibel Gruber on 04/08/19 2:[address] Patient Name: SHAHEEN NEVAREZ Admission Status: ER Accout number: [id number] Admission Date: 04-03-2019 : 1965 Admission Diagnosis:INFECTIOUS GASTROENTERITIS AND COLITIS, UNSPECIFIED Attending: NEGRITA SAHNI Current LOS: 5 Anticipated DC Date: Planned Disposition: HOME INDEPENDENTLY - DENIED DC NEEDS. Primary Insurance: MEDICARE A & B Discharge Planning Comments: CM met with patient to complete initial dc planning assessment. CM educated patient on the CM role and verbal consent given by patient to complete assessment. CM verified patient's address, phone number, and emergency contact phone numbers. Patient lives at home with her son and mother. She reports she is independent in her care at home. At discharge patient plans to return home with her famiy and feels this is a safe discharge. CM discussed availability of home health, rehab services, and medical equipment. Patient denied known discharge needs at this time. DC IMM delivered, explained, signed by the patient, and placed in her chart. Signed form also left with patient. Patient reports her son will transport him/her home at time of discharge. CM will continue to follow and will assist as needed with dc plans/needs. Deportation Officer: Rosibel Gruber RN, [facility] DCPIA - Discharge Planning Initial Assessment Updated by [email or web address]: Rosibel Gruber on 04/08/19 3:35 pm * Is the patient Alert and Oriented? Yes * How many steps to enter\exit or inside your home? NONE * PCP DR. ALFARO * Pharmacy [facility] * Preadmission Environment Home with Family * ADLs Independent * Equipment None * List name and contact numbers for known caregivers / representatives who currently or will assist patient after discharge: DIANNA KENNY - [phone] * Verbal permission to speak to the caregivers and representatives has been obtained from the patient. Yes * Community resources currently utilized None * Additional services required to return to the preadmission environment? No * Can the patient safely return to the preadmission environment? Yes * Has this patient been hospitalized within the prior 30 days at any hospital? No Coverage Notice Reviewer: [email or web address] - Rosibel Gruber Notice Issued Date-Time: 04/08/2019 15:38 Notice Type: IM Discharge Notice Notice Delivered To: Relationship to Patient: Plastics Fabricator And Assembler Name: Delivery Method: HAND - Hand Delivered Alessandra Days: Prior Verbal Notification: Recipient Understood Notice: Recipient Signature: Med Rec Note Co-signed by Attending: Coverage Notice Comment: Patient Name: SHAHEEN NEVAREZ Page 13975 at 1542 All edits/amendments must be made on the electronic document DICTATION DATE: 04/08/19 1542 INTERIOR DESIGN DIRECTOR: JERILYN 04/08/19 1542 RPT#: [id number] DC DATE:04/08/19 STATUS: DIS IN [facility] [address] [place] [address] END OF REPORT
[2019-04-09 20:06] LABS: OVA + PARASITE EXAM Final report (())
== END 2019-04-08 15:42 | disposition home or self-care (01) | DRG 392 ==
LOC: D.ER 19:44 → D.MS 04-03 00:32 → D.SDCHOLD 04-08 09:24 → D.MS 04-08 09:25
PROVIDERS: Family Medicine; Internal Medicine Nephrology; ADMIT Internal Medicine Nephrology; ATTEND Internal Medicine Nephrology
DX: A09 Infectious gastroenteritis and colitis, unspecified (principal); Z94.0 Kidney transplant status; N18.3 Chronic kidney disease, stage 3 (moderate); Z79.899 Other long term (current) drug therapy

== ENCOUNTER 2019-04-26 22:46 | Emergency (ER) | payer MEDICARE ==
[~2019-04-26] VITALS: Ht 157.5 cm; Wt 56.4 kg
[~2019-04-26 22:46] MED LIST changes: +FLAGYL500 MG PO; +LEVOFLOXACIN500 MG PO; +PROBIOTIC BLEN1 EACH PO
[2019-04-26 22:49] VITALS: Ht 157.5 cm; Wt 56.4 kg
[2019-04-26 23:10] LABS: BASOPHILS 0.1 % (0-2); EOSINOPHILS 0.6 % (0-7); HEMATOCRIT 41.9 % (36.0-48.0); HEMOGLOBIN 14.2 g/dL (12-16); IMMATURE GRANULOCYTES 0.1 % (0-5); LYMPHOCYTES 15.9 % (15-50); MCH 31.9 pg (26.0-34.0); MCHC 33.9 g/dL (31.0-37.0); MCV 94.2 fL (80.0-100.0); MEAN PLATELET VOLUME 10.5 fL (7.4-10.4); MONOCYTES 10.3 % (2-11); PLATELET COUNT 168 10x3/uL (130-400); RBC 4.45 10x6/uL (4.00-5.40); RDW 13.5 % (11.5-14.5); WBC 13.8 10x3/uL (4.8-10.8)
[2019-04-26 23:23] LABS: ALBUMIN 3.2 g/dL (3.4-5.0); ALKALINE PHOSPHATASE 63 U/L (46-116); ALT (SGPT) 16 U/L (10-68); BILIRUBIN - TOTAL 0.43 mg/dL (0.2-1.3); CALC OSMOLALITY 273 mosm/kg (275-300); CALCIUM 9.5 mg/dL (8.5-10.1); CARBON DIOXIDE 25.3 mmol/L (21.0-32.0); CHLORIDE - SERUM 102 mmol/L (98-107); CREATININE - SERUM 1.4 mg/dL (0.6-1.3); GLUCOSE 91 mg/dL (74-106); POTASSIUM - SERUM 3.8 mmol/L (3.5-5.1); PROTEIN - SERUM 6.7 g/dL (6.4-8.2); SODIUM 137 mmol/L (136-145); UREA NITROGEN 12 mg/dL (7-18); eGFR NON AFRICAN AMERICAN 42 mL/min (90-120)
[2019-04-26 23:24] LABS: AMYLASE - SERUM 80 U/L (25-115); LIPASE 169 U/L (73-393); TROPONIN-I < 0.017 ng/mL (0.000-0.060)
[2019-04-27 00:18] LABS: APPEARANCE CLEAR (CLEAR); BILIRUBIN NEGATIVE (NEGATIVE); COLOR YELLOW (YELLOW); GLUCOSE NEGATIVE (NEGATIVE); KETONE NEGATIVE (NEGATIVE); NITRITE NEGATIVE (NEGATIVE); PROTEIN NEGATIVE (NEGATIVE); SPECIFIC GRAVITY 1.015 (1.005-1.020); UROBILINOGEN NORMAL (NORMAL)
[2019-04-27] MEDS ORDERED: FLAGYL500 MG PO (00:32)
[2019-04-27] MEDS ORDERED: VANCOCIN HCL250 MG PO (00:32)
[2019-04-27 02:29] VITALS: BP 146/89
== END 2019-04-27 02:29 | disposition home or self-care (01) ==
LOC: D.ER 22:46
PROVIDERS: Emergency Medicine
DX: A04.72 Enterocolitis due to Clostridium difficile, not specified as recurrent (principal); N13.30 Unspecified hydronephrosis

== ENCOUNTER 2019-05-06 05:43 | Day surgery (SDC) | payer MEDICARE ==
[~2019-05-06] VITALS: Ht 157.5 cm; Wt 57.6 kg
[~2019-05-06 05:43] MED LIST changes: +VANCOCIN HCL250 MG PO
[2019-05-06 06:00] LABS: HEMATOCRIT 45.3 % (36.0-48.0); HEMOGLOBIN 15.4 g/dL (12-16); MCH 32.2 pg (26.0-34.0); MCV 94.6 fL (80.0-100.0); MEAN PLATELET VOLUME 10.4 fL (7.4-10.4); RBC 4.79 10x6/uL (4.00-5.40); RDW 13.5 % (11.5-14.5); WBC 7.5 10x3/uL (4.8-10.8)
[2019-05-06 06:19] LABS: ANION GAP 9.4 mmol/L (8-16); CALCIUM 10.3 mg/dL (8.5-10.1); CARBON DIOXIDE 31.8 mmol/L (21.0-32.0); CREATININE - SERUM 1.4 mg/dL (0.6-1.3); POTASSIUM - SERUM 4.2 mmol/L (3.5-5.1)
[2019-05-06 06:54] VITALS: BP 128/80; Ht 157.5 cm; Wt 57.6 kg
--- NOTE | 2019-05-06 09:55 | NUR ---
DC INSTRUCTIONS GIVEN TO PT/FAMILY. STATE UNDERSTANDING. DC'D IV CATH FULLY INTACT.
--- NOTE | 2019-05-06 10:26 | NUR ---
PT LEFT UNIT VIA WC AT 1019
--- NOTE | 2019-05-06 11:56 | OP ---
PATIENT NAME: SHAHEEN NEVAREZ MEDICAL RECORD: [id number] :67 LOCATION:D.OPS ADMISSION DATE: SURGEON: CIRILO BUCKNER MD DATE OF OPERATION: 05/06/2019 SURGEON: Cirilo Buckner MD ANESTHESIA: TIVA by Gerhard Craig CRNA DIAGNOSES: Hydronephrosis of the left transplant kidney, interstitial cystitis. PROCEDURES: Cystoscopy, left retrograde pyelogram, left ureteral stent insertion 6-Pakistani x 22 cm without string attached, intravesical Rimso instillation. FINDINGS: On cystoscopy, there is retrograde pyelogram of the left kidney. There is left hydronephrosis of the renal pelvis consistent with a left UP junction obstruction. There is no left transplant kidney ureteral hydronephrosis. No radiodense stones are seen. Ureteral orifice is a refluxing anastomosis at the left dome of the bladder. The bladder shows diffuse inflammation with no bladder cancer. BLOOD LOSS: None. 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 She had issues with recurrent urinary tract infections due to immunosuppression. Once we treated her UTIs, she still has issues with left flank pain, urinary frequency and nocturia. She had a workup by her superintendent maintenance, which showed left renal transplant hydronephrosis. She had the kidney transplant done in 2009 and she had issues with kidney stones in 2018. On reviewing her CT scan, I do not see any kidney stones within the ureter of the transplant kidney. However, we will insert a left ureteral stent to relieve her hydronephrosis. She will eventually need something more definitive done. SHE IS ALLERGIC TO BACTRIM AND CODEINE. She was given Ancef customer support professional to the OR. DESCRIPTION OF PROCEDURE: The patient was given IV sedation. She was placed in the lithotomy position. She was then prepped and draped. A 21-Pakistani cystoscope with 30-degree lens was used for visualization. We noticed bladder inflammation diffusely. No bladder tumors were seen. The transplant ureteral orifice was quite widely open and it was a refluxing anastomosis at the left dome of the bladder. We inserted an open-ended ureteral catheter into the anastomosis and put part way up the ureter. Diluted contrast was then injected and we could identify the hydronephrotic renal pelvis. The ureter itself did not appear to be hydronephrotic. No filling defects were seen along the course of the ureter. A Sensor wire was then placed through the lumen of the ureteral catheter up into the renal pelvis of the transplant kidney. The open-ended ureteral catheter was then removed, leaving the wire in place. Over the wire, we inserted the 6-Pakistani x 22-cm ureteral stent. A 22-cm was the shortest stent that we have in the hospital. The string on the distal end of the stent was removed. Once the stent was in correct position, the wire was withdrawn entirely. The distal end of stent was pushed into the bladder using the pusher. At this point, the bladder was emptied through the cystoscope sheath and the sheath was removed. We decided to instill intravesical Rimso because of the bladder inflammation. A catheter was put into the bladder. Through the lumen OPERATIVE REPORT [id number] SHAHEEN NEVAREZ of the catheter, we instilled the 50 mL of Rimso solution and then the catheter was removed, leaving the solution in the bladder. She will retain the Rimso solution in the bladder for at least 15 minutes and then void it out. I will see her in the office in 2 weeks' time for followup. TRANSINT:[id number] Voice Confirmation ID: [id number] DOCUMENT ID: [id number] CIRILO BUCKNER MD at 1156 CC: [id number] DICTATION DATE: 05/06/19 0842 DEPARTMENT CHAIR: 05/06/19 1056 [facility] 05/06/19 [address] [place] [address]
== END 2019-05-06 10:19 | disposition home or self-care (01) ==
LOC: D.OPS 05:43 → D.PAN 13:45
PROVIDERS: Anesthesiology; ATTEND Urology
DX: N13.30 Unspecified hydronephrosis (principal); N30.10 Interstitial cystitis (chronic) without hematuria; Z94.0 Kidney transplant status; Z01.812 Encounter for preprocedural laboratory examination

== ENCOUNTER → 2019-05-21 16:43 | Outpatient (CLI) | payer MEDICARE ==
[2019-05-06 06:54] VITALS: BMI 23.3
== END | disposition home or self-care (01) ==
LOC: D.LABREF 16:43
PROVIDERS: ATTEND Urology
DX: D72.829 Elevated white blood cell count, unspecified (principal); R31.9 Hematuria, unspecified

== ENCOUNTER → 2019-05-23 06:35 | Outpatient (CLI) | payer MEDICARE ==
[2019-05-06 06:54] VITALS: BMI 23.3
== END | disposition home or self-care (01) ==
LOC: D.US 06:35
PROVIDERS: ATTEND Urology
DX: N13.0 Hydronephrosis with ureteropelvic junction obstruction (principal)

== ENCOUNTER 2019-06-03 07:14 | Day surgery (SDC) | payer MEDICARE ==
[~2019-06-03] VITALS: Ht 157.5 cm; Wt 57.6 kg
[~2019-06-03 07:14] MED LIST changes: +CIPRO500 MG PO
[2019-06-03 08:00] LABS: HEMATOCRIT 48.4 % (36.0-48.0); HEMOGLOBIN 16.6 g/dL (12-16); MCH 32.3 pg (26.0-34.0); MCHC 34.3 g/dL (31.0-37.0); MCV 94.2 fL (80.0-100.0); MEAN PLATELET VOLUME 10.4 fL (7.4-10.4); RBC 5.14 10x6/uL (4.00-5.40); RDW 13.6 % (11.5-14.5); WBC 7.2 10x3/uL (4.8-10.8)
[2019-06-03 08:00] LABS: BASOPHILS 0.6 % (0-2); EOSINOPHILS 9.6 % (0-7); HEMATOCRIT 48.3 % (36.0-48.0); HEMOGLOBIN 16.6 g/dL (12-16); IMMATURE GRANULOCYTES 0.1 % (0-5); LYMPHOCYTES 31.2 % (15-50); MCH 32.4 pg (26.0-34.0); MCHC 34.4 g/dL (31.0-37.0); MCV 94.2 fL (80.0-100.0); MEAN PLATELET VOLUME 10.3 fL (7.4-10.4); MONOCYTES 8.2 % (2-11); NEUTROPHILS 50.3 % (40-80); PLATELET COUNT 227 10x3/uL (130-400); RBC 5.13 10x6/uL (4.00-5.40); RDW 13.7 % (11.5-14.5); WBC 7.2 10x3/uL (4.8-10.8)
[2019-06-03 08:10] LABS: ALBUMIN 3.7 g/dL (3.4-5.0); ANION GAP 11.3 mmol/L (8-16); BILIRUBIN - TOTAL 0.62 mg/dL (0.2-1.3); CALCIUM 9.1 mg/dL (8.5-10.1); CARBON DIOXIDE 28.9 mmol/L (21.0-32.0); CHOL - HDL RATIO 3.1 ratio (2.3-4.1); CREATININE - SERUM 1.6 mg/dL (0.6-1.3); LDL-HDL RATIO 1.6 ratio (1.5-3.5); PHOSPHOROUS 2.8 mg/dL (2.5-4.9); POTASSIUM - SERUM 4.2 mmol/L (3.5-5.1); PROTEIN - SERUM 7.3 g/dL (6.4-8.2)
[2019-06-03 08:28] VITALS: BP 104/78; Ht 157.5 cm; Wt 57.6 kg
[2019-06-03 09:22] LABS: CREATININE - URINE 186.3 mg/dL (30-125)
[2019-06-03 09:24] LABS: PRO/CRE RATIO URINE 2.7 mg/g; PROTEIN - URINE 497.4 mg/dL (0.0-11.9)
--- NOTE | 2019-06-03 11:21 | OP ---
PATIENT NAME: SHAHEEN NEVAREZ MEDICAL RECORD: [id number] :67 LOCATION:[facility] ADMISSION DATE: SURGEON: MARIEL BUCKNER MD DATE OF OPERATION: 06/03/2019 SURGEON: Mariel Buckner MD ANESTHESIA: TIVA by Solo Rainey CRNA DIAGNOSES: Left ureteropelvic junction obstruction, urinary tract infection, retained left ureteral stent. PROCEDURES: Cystoscopy and left ureteral stent exchange. 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 SPECIMENS: Old left ureteral stent. BLOOD LOSS: None. 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 She has a living-related left lower quadrant transplant kidney from her sister being the donor. This kidney has been found to have a left UPJ obstruction. So far, we have been treating it with insertion of a left ureteral stent. There was resolution of the renal hydronephrosis on ultrasound after stent insertion. Lately, she had a urinary tract infection at 3 different organisms. These are all being treated with one antibiotic. She comes today to have the left ureteral stent exchanged for a noncontaminated stent. 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 DESCRIPTION OF PROCEDURE: The patient was given IV sedation. She was placed in the lithotomy position and prepped and draped. A 21-Maltese cystoscope with 30-degree lens was used for visualization. The urine was rather orange in color due to her use of Pyridium. The urine was drained out of the bladder. On fluoroscopy, we could see the stent in position. The stent was visualized and grasping forceps were used to entirely remove the stent. We then inserted an open-ended ureteral catheter into the left eileen-ureteral orifice. A retrograde pyelogram was performed and this again confirmed that there was obstruction at the UP junction of the kidney. There was left hydronephrosis. With removal of the ureteral catheter, the distal ureter drains very quickly up to the UP junction obstruction site. There was drainage from the kidney itself, it was rather slow. Through the lumen of the open-ended ureteral catheter, which we put back into the ureteral orifice, a Sensor wire was placed up into the renal pelvis. The open-ended ureteral catheter was then removed, leaving the wire in place. Over the wire, we inserted a 6-Maltese x 22 cm left ureteral stent without string attached. The bladder was then emptied and then the scope was removed. The patient will be seen in followup next week to check on the urine to be sure that the infection was gone. She has a referral for Dr. Yandel Bolivar of [facility] for reconstruction of this UPJ obstruction. TRANSINT:[id number] Voice Confirmation ID: [id number] DOCUMENT ID: [id number] OPERATIVE REPORT [id number] SHAHEEN NEVAREZ ROBERT S MD at 1121 CC: [id number] DICTATION DATE: 06/03/19 1021 BUSINESS SUPERVISOR: 06/03/19 1047 [id number] [place] [address]
[2019-06-05 17:08] LABS: BK QUANTITATION PCR Positive < 200 (Negative)
[2019-06-06 03:07] LABS: TACROLIMUS - LABCORP 5.9 ng/mL (2.0-20.0)
== END 2019-06-03 12:00 | disposition home or self-care (01) ==
LOC: D.OPS 07:14 → D.PAN 13:45
PROVIDERS: Anesthesiology; ATTEND Urology
DX: N13.0 Hydronephrosis with ureteropelvic junction obstruction (principal); N39.0 Urinary tract infection, site not specified; T86.19 Other complication of kidney transplant; Z01.812 Encounter for preprocedural laboratory examination; N03.9 Chronic nephritic syndrome with unspecified morphologic changes; N18.9 Chronic kidney disease, unspecified

== ENCOUNTER 2019-06-16 07:12 | Day surgery (SDC) | payer MEDICARE ==
[~2019-06-16] VITALS: Ht 157.5 cm; Wt 56.4 kg
[2019-06-16 07:24] LABS: HEMATOCRIT 49.9 % (36.0-48.0); HEMOGLOBIN 17.1 g/dL (12-16); MCH 32.7 pg (26.0-34.0); MCHC 34.3 g/dL (31.0-37.0); MCV 95.4 fL (80.0-100.0); MEAN PLATELET VOLUME 10.3 fL (7.4-10.4); RBC 5.23 10x6/uL (4.00-5.40); RDW 13.9 % (11.5-14.5)
[2019-06-16 08:03] VITALS: BP 100/68; Ht 157.5 cm; Wt 56.4 kg
--- NOTE | 2019-06-16 10:06 | NUR ---
1005 FL DIET SERVED
--- NOTE | 2019-06-16 19:07 | OP ---
PATIENT NAME: SHAHEEN NEVAREZ MEDICAL RECORD: [id number] :67 LOCATION:[facility] ADMISSION DATE: SURGEON: MJ CONTRERAS DO DATE OF OPERATION: 06/16/2019 PROCEDURE: Colonoscopy with biopsies. INDICATIONS FOR PROCEDURE: Screening for colorectal cancer. SCOPE: Olympus video pediatric colonoscope. MEDICATIONS: Propofol 300 mg IV per anesthesia. WITHDRAWAL TIME: 7 minutes. ESTIMATED BLOOD LOSS: Minimal. COMPLICATIONS: None. FINDINGS: Informed consent was given. The patient was made comfortable with the above medication. After reaching an adequate level of sedation by slow IV push, the patient was placed on her left side. A digital rectal examination was performed and it was normal. The endoscope was then advanced under direct visualization through the rectum to the cecum, confirmed by the presence of the appendiceal orifice and ileocecal valve. The endoscope was slowly withdrawn and the mucosa was carefully examined. The prep quality was good. There were no polyps visualized on today's examination. There were scattered diverticula of mild severity in the distal descending and sigmoid colon. Also, in the descending colon, there were patchy areas of granularity and possible loss of vascular markings. Random cold forceps biopsies were taken to submit for histopathology. Retroflexion was performed in the rectum with a normal appearing rectal wall. The endoscope was withdrawn from the patient. The patient tolerated the procedure well and there were no complications. IMPRESSION: 1. Mild diverticulosis of the descending and sigmoid colon. 2. Possible colitis, which would be very mild and limited in nature. Biopsies were taken to rule this out. Overall, I do not believe that the appearance of the colon is abnormal, but I will follow up the biopsies. PLAN AND RECOMMENDATIONS: 1. Discharge home when recovery parameters are met. 2. Follow up biopsy specimen results. 3. High fiber diet. 4. Continue current medications. 5. Recall colonoscopy in approximately 5 years for colon cancer screening purposes. TRANSINT:[id number] Voice Confirmation ID: [id number] DOCUMENT ID: [id number] OPERATIVE REPORT [id number] SHAHEEN NEVAREZ MJ CONTRERAS DO at 1907 CC: [id number] DICTATION DATE: 06/16/19 0944 STAFF TRAINER: 06/16/19 [address] [facility] 06/16/19 [facility] [address] [place] [place] [address]
== END 2019-06-16 10:52 | disposition home or self-care (01) ==
LOC: D.OPS 07:12
PROVIDERS: Anesthesiology; ATTEND Internal Medicine Gastroenterology
DX: Z12.11 Encounter for screening for malignant neoplasm of colon (principal)

== ENCOUNTER 2019-06-29 11:45 | Emergency (ER) | payer MEDICARE ==
[~2019-06-29] VITALS: Ht 157.5 cm; Wt 56.4 kg
[2019-06-29 11:57] VITALS: Ht 157.5 cm; Wt 56.4 kg
[2019-06-29 12:25] LABS: BASOPHILS 0.2 % (0-2); EOSINOPHILS 0.7 % (0-7); HEMATOCRIT 48.6 % (36.0-48.0); HEMOGLOBIN 16.7 g/dL (12-16); IMMATURE GRANULOCYTES 0.2 % (0-5); LYMPHOCYTES 16.8 % (15-50); MCH 32.5 pg (26.0-34.0); MCHC 34.4 g/dL (31.0-37.0); MCV 94.6 fL (80.0-100.0); MEAN PLATELET VOLUME 10.7 fL (7.4-10.4); MONOCYTES 6.2 % (2-11); NEUTROPHILS 75.9 % (40-80); PLATELET COUNT 201 10x3/uL (130-400); RBC 5.14 10x6/uL (4.00-5.40); RDW 13.5 % (11.5-14.5); WBC 16.7 10x3/uL (4.8-10.8)
[2019-06-29 12:41] LABS: COLOR YELLOW (YELLOW)
[2019-06-29 12:42] LABS: APPEARANCE CLEAR (CLEAR); BILIRUBIN NEGATIVE (NEGATIVE); GLUCOSE NEGATIVE (NEGATIVE); KETONE NEGATIVE (NEGATIVE); NITRITE NEGATIVE (NEGATIVE); PROTEIN NEGATIVE (NEGATIVE); SPECIFIC GRAVITY 1.005 (1.005-1.020); UROBILINOGEN NORMAL (NORMAL)
[2019-06-29 12:43] LABS: BACTERIA FEW /hpf (NONE SEEN); EPITHELIAL CELLS 0-5 /hpf (0-5); RED CELLS - URINE NONE SEEN /hpf (0-5); WHITE CELLS - URINE 0-5 /hpf (0-5)
[2019-06-29 12:46] LABS: ALBUMIN 3.4 g/dL (3.4-5.0); ANION GAP 11.1 mmol/L (8-16); BILIRUBIN - TOTAL 1.02 mg/dL (0.2-1.3); CALCIUM 9.4 mg/dL (8.5-10.1); CARBON DIOXIDE 27.9 mmol/L (21.0-32.0); CREATININE - SERUM 1.4 mg/dL (0.6-1.3); PROTEIN - SERUM 7.2 g/dL (6.4-8.2)
[2019-06-29] MEDS ORDERED: OMNICEF300 MG PO (14:52)
[2019-06-29 16:08] VITALS: BP 101/67
== END 2019-06-29 16:08 | disposition home or self-care (01) ==
LOC: D.ER 11:45
PROVIDERS: Family Medicine
DX: R10.9 Unspecified abdominal pain (principal); D72.829 Elevated white blood cell count, unspecified

== ENCOUNTER 2019-07-07 09:32 | Day surgery (SDC) | payer MEDICARE ==
[~2019-07-07] VITALS: Ht 157.5 cm; Wt 58.2 kg
[~2019-07-07 09:32] MED LIST changes: +OMNICEF300 MG PO
[2019-07-07 09:50] LABS: HEMATOCRIT 47.5 % (36.0-48.0); HEMOGLOBIN 16.6 g/dL (12-16); MCH 32.5 pg (26.0-34.0); MCHC 34.9 g/dL (31.0-37.0); MCV 93.1 fL (80.0-100.0); RBC 5.1 10x6/uL (4.00-5.40); RDW 13.1 % (11.5-14.5); WBC 8.3 10x3/uL (4.8-10.8)
[2019-07-07 09:57] LABS: CALCIUM 9.2 mg/dL (8.5-10.1); CARBON DIOXIDE 28.4 mmol/L (21.0-32.0); CREATININE - SERUM 1.2 mg/dL (0.6-1.3); POTASSIUM - SERUM 4.4 mmol/L (3.5-5.1)
[2019-07-07 10:35] VITALS: BP 127/83; Ht 157.5 cm; Wt 58.2 kg
--- NOTE | 2019-07-08 15:07 | OP ---
PATIENT NAME: SHAHEEN NEVAREZ MEDICAL RECORD: [id number] :67 LOCATION:[facility] ADMISSION DATE: SURGEON: MJ CONTRREAS DO DATE OF OPERATION: 07/07/2019 PROCEDURE: EGD with biopsies. INDICATIONS FOR PROCEDURE: Heartburn. SCOPE: Olympus video gastroscope. MEDICATIONS: Propofol 150 mg IV per anesthesia. ESTIMATED BLOOD LOSS: Minimal. COMPLICATIONS: None. FINDINGS: Informed consent was given. The patient was made comfortable with the above medication. After reaching an adequate level of sedation by slow IV push, the patient was placed on her left side. The endoscope was advanced under direct visualization through the mouth to the second portion of the duodenum. The entire esophagus appeared normal. At the GE junction, there were mild changes consistent with LA class A reflux-induced esophagitis. The endoscope was advanced beyond the GE junction into the stomach and retroflexed to view the cardia, where a very small sliding hiatal hernia was present. The fundus and body of the stomach appeared normal. As the endoscope reached the antrum and prepyloric regions, there were a few areas of erythema and granularity as well as some congestion. Cold forceps biopsies were taken to submit for histopathology and to rule out the presence of H. pylori. The endoscope was advanced beyond the pylorus into the duodenum, which appeared normal down to the second portion. Random biopsies were taken with cold forceps of the duodenum to submit for histopathology. The endoscope was withdrawn from the patient. The patient tolerated the procedure well and there were no complications. IMPRESSION: 1. LA class A reflux-induced esophagitis. 2. Small sliding hiatal hernia. 3. Mild gastritis involving the antrum and prepyloric regions of the stomach. PLAN AND RECOMMENDATIONS: 1. Discharge home when recovery parameters are met. 2. Follow up biopsy specimen results. 3. GERD diet and reflux precautions. 4. Continue current medications. 5. Okay to use Zantac or Pepcid p.r.n. heartburn and reflux symptoms. 6. Notify GI clinic if symptoms worsen or fail to improve. TRANSINT:[id number] Voice Confirmation ID: [id number] DOCUMENT ID: [id number] OPERATIVE REPORT [id number] SHAHEEN NEVAREZ MJ CONTRERAS DO at 2028 CC: [id number] DICTATION DATE: 07/07/19 1148 CAN CUTTER: 07/07/19 1158 DEP SDC 07/07/19 [id number] [place] [address]
== END 2019-07-07 12:40 | disposition home or self-care (01) ==
LOC: D.OPS 09:32
PROVIDERS: Anesthesiology; ATTEND Internal Medicine Gastroenterology
DX: K21.0 Gastro-esophageal reflux disease with esophagitis (principal); K44.9 Diaphragmatic hernia without obstruction or gangrene; K29.70 Gastritis, unspecified, without bleeding; Z01.812 Encounter for preprocedural laboratory examination